=== PATIENT | female | born 1995 | race Caucasian/White ===

== ENCOUNTER 2016-05-26 12:56 | Emergency (ER) | payer OTHER ==
[~2016-05-26] VITALS: Ht 172.7 cm; Wt 63.0 kg
[2016-05-26 13:04] VITALS: TEMP 37.1; Ht 172.7 cm; Wt 63.0 kg
[2016-05-26] MEDS ORDERED: ONDANSETRON 4MG OD TAB PO STA (13:28)
[2016-05-26] MEDS ORDERED: ACETAMINOPHEN 500 MG TAB PO STA (13:28)
[2016-05-26] MEDS ORDERED: BCPILLS PO (13:52)
--- NOTE | 2016-05-26 14:31 | DIAGNOSTIC IMAGING REPORT ---
HEAD CT NONCONTRAST CT DOSE: 537.48 mGy.cm HISTORY: Trauma Fall. Head injury on left TECHNIQUE: Multiaxial CT images of the head were performed without the use of intravenous contrast. Comparison: None. Findings: The paranasal sinuses and mastoid air cells are clear. The calvarium and skull base are intact. The ventricles and sulci are within normal limits. There is no mass, hematoma, midline shift, or acute infarct. Impression: No acute intracranial abnormality. Electronically signed by: Mike Arita M.D. 05/26/2016 2:30 PM Dictated Date/Time: 05/26/2016 2:30 PM
[2016-05-26 15:39] VITALS: BP 110/62; PULSE 62; O2SAT 100
[2016-05-26] MEDS ORDERED: ONDANSETRON HOME PACK 4MG OD TAB PO ONE (15:45)
--- NOTE | 2016-05-26 21:08 | EMERGENCY ROOM VISIT NOTE ---
ED Visit Note First contact with patient: 13:20 CHIEF COMPLAINT: Head injury HISTORY OF PRESENT ILLNESS: This 20-year-old female patient presented to the emergency department after receiving a head injury approximately 8 hours ago. The patient states that she was sleeping in bed, when she believes that she rolled over, and fell out of her loft. She checked her head on a radiator in the dorm, and fell to the ground. There was no reported loss of consciousness. There has been no vomiting. The patient complains of head pain and nausea. The patient complains of no neck pain. The patient has taken nothing for the pain. The patient rates the pain as 6/10 and dull. The patient denies bowel or bladder dysfunction. The patient denies any other injuries. She does not have a history of concussions in the past. She is having difficulty focusing her vision. REVIEW OF SYSTEMS: A review of systems was performed with positives and pertinent negatives listed in the history of present illness. All other systems were reviewed and are negative. ALLERGIES: No known allergies MEDICATIONS: See EMR PMH: Otherwise healthy SOCIAL HISTORY: Student who lives locally PHYSICAL EXAM: Vital Signs: Reviewed Nurse's notes, vital signs stable. GENERAL : White female, in no acute distress, well-developed, well-nourished. GCS 15. NEURO: The patient is alert, oriented to person place and time, and coherent. Normal mini mental status exam. Negative Romberg and pronator drift. Cerebellar function intact. HEAD: There is a superficial abrasion over the right lateral forehead. No distinct hematoma or laceration. No joshi sign or raccoon eyes. EYES: Pupils are equal round and reactive to light and accommodation. EOMs are full and optic discs and fundi are normal. There is no swelling or discoloration of the tissue surrounding the eyes. EARS: External auditory canals clear without blood. NOSE: Patent without tenderness. No septal hematoma. FACE: No facial bone tenderness. NECK: Supple. There is no cervical spine tenderness. The patient does not have tenderness with movement of the neck. HEAD CT NONCONTRAST CT DOSE: 537.48 mGy.cm HISTORY: Trauma Fall. Head injury on left TECHNIQUE: Multiaxial CT images of the head were performed without the use of intravenous contrast. Comparison: None. Findings: The paranasal sinuses and mastoid air cells are clear. The calvarium and skull base are intact. The ventricles and sulci are within normal limits. There is no mass, hematoma, midline shift, or acute infarct. Impression: No acute intracranial abnormality. ED COURSE: Physical exam and history were performed. Nursing notes and EMR were reviewed. The patient appears to have rolled out of her loft bed in her dorm, and struck her head. She has a mild headache and some nausea. She was given Tylenol and Zofran here in the department. The patient seems to be describing concussion-like symptoms. I discussed options of care with the patient, and we did elect to perform a CT scan. CT scan of the head was performed and does not show evidence of acute intracranial abnormality. Overall the patient appears stable for discharge home. I recommend that she follow with [facility] this week for further care and management. She was otherwise invited back to the ER with any new, worsening, or concerning symptoms, and was given instructions as below. Current/Historical Medications Scheduled Control Pills ( Control Pills), 1 TAB PO DAILY Allergies Coded Allergies: No Known Allergies (Unverified , 02/11/15) Vital Signs Date Time Temp Pulse Resp B/P Pulse Ox O2 Delivery O2 Flow Rate FiO2 05/26/16 15:39 62 16 110/62 100 05/26/16 13:04 37.1 94 18 123/77 99 Room Air Medications Administered Medications (Trade) Dose Ordered Sig/Lauren Route Start Time Stop Time Status Last Admin Dose Admin Acetaminophen (Tylenol Tab) 1,000 mg NOW STAT PO 05/26/16 13:28 05/26/16 13:30 DC 05/26/16 13:59 1,000 MG Ondansetron HCl (Zofran Odt) 4 mg NOW STAT PO 05/26/16 13:28 05/26/16 13:30 DC 05/26/16 14:00 4 MG Ondansetron HCl (ZOFRAN ODT 4MG Home Pack) 1 homepack UD ONCE PO 05/26/16 15:45 05/26/16 15:46 DC 05/26/16 15:45 1 HOMEPACK Departure Information Impression Primary Impression: Head injury, closed, with concussion Dispostion Home / Self-Care Condition GOOD Forms HOME CARE DOCUMENTATION FORM, School Instructions, Additional Instructions: Patient was seen and evaluated today in the emergency department fo medical care. May return to class 05/29/2016. Please excuse. IMPORTANT VISIT INFORMATION Patient Instructions [facility], ED Concussion Additional Instructions You were seen and evaluated today on an emergency basis only. This is not a substitute for, or an effort to provide, complete comprehensive medical care. It is not possible to recognize and treat all injuries or illnesses in a single emergency department visit. For this reason it is recommended that you followup with [facility] in the next 2-3 days for recheck of your condition. For baseline pain relief you may alternate ibuprofen and acetaminophen every 4 hours for pain control. Take 600 mg ibuprofen (Advil) and then 4 hours later take 1000 mg acetaminophen (Tylenol). Do not take more than 3000 mg acetaminophen in a single day. Zofran (homepack) 1 tablet every 6 hrs as needed for nausea. You are welcome to return to the emergency department anytime with new, worsening, or concerning symptoms. School Instructions Additional School Instructions: Patient was seen and evaluated today in the emergency department for medical care. May return to class 05/29/2016. Please excuse.
== END 2016-05-26 15:56 | disposition home or self-care (01) ==
LOC: C.EDB 12:58 → C.EDD 15:56
DX: S06.0X0A Concussion without loss of consciousness, initial encounter (principal); W06.XXXA Fall from bed, initial encounter

== ENCOUNTER 2017-02-10 22:23 | Emergency (ER) | payer OTHER ==
[~2017-02-10] VITALS: Ht 172.7 cm; Wt 59.5 kg
[~2017-02-10 22:23] MED LIST: BCPILLS PO; SERT50TA PO
[2017-02-10 22:26] VITALS: TEMP 37; Ht 172.7 cm; Wt 59.5 kg
[2017-02-10] MEDS ORDERED: LIDOCAINE/EPINEPH/TETRACAINE 1 EA SYR EXT STA ×2 (22:49→23:50)
[2017-02-10] MEDS ORDERED: ACETAMINOPHEN 500 MG TAB PO STA (23:50)
[2017-02-10] MEDS ORDERED: IBUPROFEN 600 MG TAB PO STA (23:50)
[2017-02-11 01:04] VITALS: BP 112/73; PULSE 80; O2SAT 100
--- NOTE | 2017-02-11 21:14 | EMERGENCY ROOM VISIT NOTE ---
ED Visit Note First contact with patient: 22:36 CHIEF COMPLAINT: Eyebrow laceration HISTORY OF PRESENT ILLNESS: This 21-year-old female patient presents to the emergency department after cutting the right eyebrow about 6 hours ago. Patient states that she turned and struck into a door, causing her injury. The patient has had a mild persistent headache but no vomiting. She did not lose consciousness in the injury. The bleeding has stopped. Denies weakness or numbness of the face and jaw. The patient rates the pain as dull and 4/10. The patient denies any other injuries. The patient's Tetanus shot is reportedly up to date. REVIEW OF SYSTEMS: A 6 system review of systems was completed with positives and pertinent negatives listed in the HPI. ALLERGIES: Prednisone MEDICATIONS: See EMR PMH: No chronic medical disease SOCIAL HISTORY: Student and lives locally PHYSICAL EXAM: VITALS: Vitals are noted on the nurse's note and reviewed by myself. Vital signs stable. GENERAL: Well-developed, well-nourished, white female, who is in no acute distress and resting comfortably. Patient is cooperative with the examination. HEAD: No joshi sign or raccoon eyes. There is a 1.0 cm linear laceration along the medial aspect of the right eyebrow. This gapes and will require repair. EARS: External ear normal. External auditory canals clear, tympanic membranes pearly robertson without erythema or effusion bilaterally. No hemotympanum EYES: Pupils equal round and reactive to light and accommodation. Conjunctivae without injection, sclerae without icterus. Extraocular movements intact. No hyphema NOSE: Patent, turbinates without inflammation or discharge. No epistaxis MOUTH: Mucous membranes moist. Tonsils are not enlarged. Pharynx without erythema, blood, or exudate. Uvula midline. Airway patent. NECK: Supple without nuchal rigidity. No lymphadenopathy. No thyromegaly. Cervical spine is nontender. HEART: Regular rate and rhythm without murmurs gallops or rubs. LUNGS: Clear to auscultation bilaterally without wheezes, rales or rhonchi. No retractions or accessory muscle use. ABDOMEN: Positive normal bowel sounds x 4. Soft, nontender, without masses or organomegaly. No guarding or rebound tenderness. MUSCULOSKELETAL: No muscle atrophy, erythema, or edema noted. Full range of motion without joint tenderness in all extremities. NEURO: Patient was alert and oriented to person place and time. CN II through XII grossly intact. Deep tendon reflexes 2+ throughout. No focal neurological deficits GCS 15 SKIN: The skin was without rashes, erythema, edema, or bruising. Capillary reflex less than 2 seconds. EMERGENCY DEPARTMENT COURSE: I examined the patient. Verbal consent was obtained to perform the procedure. Using sterile technique the wound was cleansed with Betadine. The area was sterilely draped. LET gel was used to anesthetize the laceration on the eyebrow. Once the patient was anesthetized, the wound was copiously irrigated under pressure with sterile saline. The wound was explored and was as described above. The laceration was repaired using 2 simple interrupted 6-0 nylon sutures with the wound edges being well approximated. The patient tolerated the procedure well. Hemostasis was achieved. The area was cleaned with sterile saline and dressed with bacitracin ointment and bandage. The patient was discharged home in good condition. Current/Historical Medications Scheduled Control Pills ( Control Pills), 1 TAB PO DAILY Sertraline (Zoloft), 50 MG PO DAILY Allergies Coded Allergies: Prednisone (Verified Allergy, Unknown, UNKNOWN, 02/10/17) Vital Signs Date Time Temp Pulse Resp B/P (MAP) Pulse Ox O2 Delivery O2 Flow Rate FiO2 02/11/17 01:04 80 18 112/73 100 02/10/17 23:56 53 18 107/66 100 Room Air 02/10/17 23:09 18 02/10/17 22:26 37.0 68 18 100 Room Air Medications Administered Medications (Trade) Dose Ordered Sig/Lauren Route Start Time Stop Time Status Last Admin Dose Admin Tetracaine/ Epinephrine/ Lidocaine (L.e.t. Gel 4%/ 1:100/0.5%) 1 ea NOW STAT EXT 02/10/17 22:49 02/10/17 22:50 DC 02/10/17 23:03 1 EA Tetracaine/ Epinephrine/ Lidocaine (L.e.t. Gel 4%/ 1:100/0.5%) 1 ea NOW STAT EXT 02/10/17 23:50 02/10/17 23:51 DC 02/10/17 23:56 1 EA Acetaminophen (Tylenol Tab) 1,000 mg NOW STAT PO 02/10/17 23:50 12/4/17 23:51 DC 02/10/17 23:56 1,000 MG Ibuprofen (Motrin Tab) 600 mg NOW STAT PO 02/10/17 23:50 02/10/17 23:51 DC 02/10/17 23:55 600 MG Departure Information Impression Primary Impression: Laceration of right eyebrow Additional Impression: Head injury Dispostion Home / Self-Care Condition GOOD Forms HOME CARE DOCUMENTATION FORM, IMPORTANT VISIT INFORMATION Patient Instructions [facility], ED Laceration All, ED Scar Tips to Minimize Additional Instructions You were seen and evaluated today on an emergency basis only. This is not a substitute for, or an effort to provide, complete comprehensive medical care. It is not possible to recognize and treat all injuries or illnesses in a single emergency department visit. For this reason it is recommended that you followup with [facility] with any ongoing or persistent symptoms. Keep wound clean and dry. Do not allow any crusting or dried blood to accumulate on sutures. If this occurs, use a mild soap/water on a Q-tip to clean the wound. Do not use Peroxide to clean the wound as this can delay healing Use an antibiotic ointment like Bacitracin for 3-4 days, then let wound dry. You may bathe and shower as normal, but DO NOT SOAK the wound. Suture removal in about 5-7 days with your Family Doctor or in the ER. Return sooner for any signs of infection, increasing redness, swelling, or drainage. You are welcome to return to the emergency department anytime with new, worsening, or concerning symptoms. Problem Qualifiers
== END 2017-02-11 01:04 | disposition home or self-care (01) ==
LOC: C.EDB 22:24 → C.EDA 02-11 01:04
DX: S01.111A Laceration without foreign body of right eyelid and periocular area, initial encounter (principal); S09.90XA Unspecified injury of head, initial encounter; W22.09XA Striking against other stationary object, initial encounter; R51 Headache; Z79.3 Long term (current) use of hormonal contraceptives